=== PATIENT | female | born 1940 | race Caucasian/White ===

== ENCOUNTER 2017-04-28 11:34 | Inpatient (IN) ==
--- NOTE | 2017-04-28 13:50 | Event Note ---
Date of Encounter: 04/28/17 Time of Encounter: 13:48 Patient seen and examined with MAILING SPECIALIST. Left hip fracture after mechanical fall. No loss of conciousness of head trauma. Regarding preop clearance, patient has reasonable functional capicity > 4 mets, cath 2 years ago showed no occlusive CAD. She does have clinical predictors including HTN, CKD whcih make her at moderate risk for postop cardiac complications. However, there is no need for further preop cardiac testing prior to surgery.
--- NOTE | 2017-04-28 14:38 | Orthopedic Consult Note ---
Date of Encounter: 04/28/17 Time of Encounter: 14:36 Assessment and Plan (1) Hip fracture, left Current Visit: No Status: Acute The diagnosis and treatment plan were discussed the patient. She has a left hip intertrochanteric fracture. To allow for ambulation and to get out of bed. Recommend surgical fixation of fracture. She is in agreement with this and would like to proceed with a cephalomedullary nail left hip. Risks and benefits of procedure were discussed with patient and her family and informed consent was obtained. Plan for surgery today. Qualifiers: Encounter type: initial encounter Fracture type: closed Qualified Code(s) : S72.002A - Fracture of unspecified part of neck of left femur, initial encounter for closed fracture History of Present Illness HPI: Ms. Garcia is a 76 year old female fell onto her left hip today. This was a mechanical fall. No syncope or blacking out prior. She had immediate pain and deformity of the left hip. She was initially presented to [place] [facility] where she was diagnosed with a left hip intertrochanteric fracture. She was then transferred to [place] for definitive management. He states she states she ambulated and is a community ambulator. Past Med Surg Social Fam HX - Past Medical History Medical history: diabetes, hyperlipidemia, hypertension, thyroid disease Psychiatric history: no psych history - Social History Smoking Status: Never smoker Smokeless Tobacco Status: No Alcohol use: none Drug use: none - Family History Mother History Unknown: Yes Living Status: Father History Unknown: Yes Medications and Allergies 3 Allergy/AdvReac Type Severity Reaction Status Date / Time ciprofloxacin [From Cipro] Allergy See Verified 04/28/17 10:20 Comments All Systems Reviewed: A 10-system review of systems was performed and is negative for pertinent findings except as documented above in the HPI. Physical Exam - Constitutional Vitals: Temp Pulse Resp BP Pulse Ox 97.9 F 71 18 185/79 99 04/28/17 14:12 04/28/17 14:12 04/28/17 14:12 04/28/17 14:12 04/28/17 14:12 Exam: Consult Exam: Constitutional -Vitals reviewed -The patient is well developed and well nourished. -Mood is pleasant. -The patient is well groomed. Psychiatric -The patient is fully alert and oriented x 3. Respiratory: -Respiratory effort normal Abdomen: -Soft abdomen -Non tender -Non distended: Left upper extremity: -No deformities. The overlying skin is intact. No obvious signs of acute trauma. -No tenderness to palpation throughout. -No significant pain with passive motion of the shoulder, elbow, wrist, and fingers within the limits of the bed. -Able to make an "OK" sign, cross the index and long fingers, and extend the thumb. -Sensation grossly intact to light touch throughout the median, radial, and ulnar distributions. -Radial pulse is present; Fingers have good capillary refill. Right upper extremity: -No deformities. The overlying skin is intact. No obvious signs of acute trauma. -No tenderness to palpation throughout. -No significant pain with passive motion of the shoulder, elbow, wrist, and fingers within the limits of the bed. -Able to make an "OK" sign, cross the index and long fingers, and extend the thumb. -Sensation grossly intact to light touch throughout the median, radial, and ulnar distributions. -Radial pulse is present; Fingers have good capillary refill. Left lower extremity: LLE is short/ER Pain with log roll/IR -Able to dorsiflex and plantarflex the ankle and toes. -Sensation is grossly intact to light touch throughout the sural, saphenous, superficial peroneal, and deep peroneal distributions. -Toes have good capillary refill. Right lower extremity: -No deformities. The overlying skin is intact. No obvious signs of acute trauma. -No tenderness to palpation throughout. -No pain with passive motion of the hip, knee, ankle, and toes within the limits of the bed. -No pain with axial loading of the thigh. -Able to dorsiflex and plantarflex the ankle and toes. -Sensation is grossly intact to light touch throughout the sural, saphenous, superficial peroneal, and deep peroneal distributions. -Toes have good capillary refill. Results - Labs Labs: All other labs normal. - Diagnostic results Hip x-ray: report reviewed, image reviewed (Left hip intertrochanteric fracture) Consult Discharge Plan - Plan Referrals: Leda Charlton MD [Primary Care Provider] -
[2017-04-28] MEDS ORDERED: Naloxone 0.4 MG/ML INJ IVP PRN (14:43)
[2017-04-28] MEDS ORDERED: *HR* HYDROcodone/Acet 5/325 mg TABLET PO PRN (14:43)
[2017-04-28] MEDS ORDERED: Acetaminophen 325 MG TABLET PO PRN (14:43)
[2017-04-28] MEDS ORDERED: Ondansetron 4 MG/2 ML VIAL IVP PRN (14:43)
--- NOTE | 2017-04-28 15:00 | Internal Med History&Physical ---
Date of Encounter: 04/28/17 Time of Encounter: 14:30 Assessment and Plan (1) Hip fracture, left Current visit: Yes Status: Acute Acute closed fx of left hip sustained this morning when pt. fell retrieving eggs outside. Denies hitting head or syncope. Denies hx of falls. Pt. currently pain-free on exam and resting comfortably. Discussed orthopedic consult with Dr. Beavers today who plans to do surgery today and I appreciate the consult. EKG today shows sinus rhythm with first-degree AV block, intraventricular conduction delay, left ventricular hypertrophy and ST-T change. Echocardiogram ordered stat pre-op. Pt. has risk factors of DM, HTN, and HLD. NPO now. Bilateral SCDs on LEs for DVT prophylaxis. Stair-step pain medications for pain mgmt. SW/PT/OT consults ordered to assess for rehabilitation needs post-surgery and post-discharge. Falls/safety precautions. Bed rest. Pt. discussed w/Dr. Moffett who is in agreement w/plan of care. Pt. is high risk for further morbidity based on current fx, sx, and risk factors. Inpatient. Qualifiers: Encounter type: initial encounter Fracture type: closed Qualified Code(s) : S72.002A - Fracture of unspecified part of neck of left femur, initial encounter for closed fracture (2) Leukocytosis Current visit: Yes Status: Acute Acute leukocytosis. Reactive versus infectious-related. Pt. states she was sick for 7 days at [facility] but self-treated. Denies recent illness or current sx. U/A w/micro, culture, and reflex ordered. Blood cultures x 2 ordered. Monitor pt. and f/u labs. Will administer abx if warranted by culture results. Qualifiers: Leukocytosis type: unspecified Qualified Code(s): D72.829 - Elevated white blood cell count, unspecified (3) Diabetes Current visit: Yes Status: Chronic Hx of chronic diabetes controlled by oral antihyperglycemic medications. Hold PO meds and administer low-dose correction insulin sliding scale with hypoglycemic protocol. BG checks before meals and at bedtime. A1c in a.m. labs. Qualifiers: Diabetes mellitus type: type 2 Diabetes mellitus complication status: with unspecified complications Diabetes mellitus senior living insulin use: without senior living use Qualified Code(s): E11.8 - Type 2 diabetes mellitus with unspecified complications (4) HLD (hyperlipidemia) Current visit: Yes Status: Chronic Hx of chronic HLD. Lipid panel in a.m. labs. Continue pts. Lipitor. Qualifiers: Hyperlipidemia type: pure hypercholesterolemia Qualified Code(s): E78.00 - Pure hypercholesterolemia, unspecified; E78.0 - Pure hypercholesterolemia (5) HTN (hypertension) Current visit: Yes Status: Chronic Hx of chronic HTN. Monitor pt. and VS. Continue pts. Lopressor and lisinopril. Qualifiers: Hypertension type: essential hypertension Qualified Code(s): I10 - Essential (primary) hypertension (6) Thyroid disease Current visit: Yes Status: Chronic Hx of chronic thyroid disease. TSH and Free T4 orderd. Continue pts. Synthroid. (7) CKD (chronic kidney disease) stage 4, GFR 15-29 ml/min Current visit: Yes Status: Chronic Hx of CKD. Currently stage 4 w/GFR of 29 and creatinine of 1.71 on admission. Will use IV fluids judiciously if warranted and avoid nephrotoxins. Monitor I&O and daily weight. (8) DVT prophylaxis Current visit: Yes Status: Acute Bilateral SCDs on pts. LEs d/t planned surgery today. Will continue post- surgery d/t risk of bleeding. Internal Medicine - H&P: HPI Chief complaint: Fall Admitted From: Intrahospital Transfer Plans for Post Hospital Care: Home History of present illness: Ms. Garcia is a 76 year old female with medical hx of diabetes controlled with oral and Amyx, HLD, HTN, thyroid disease presents to ED via [place] [facility] with chief complaint of pain in her left hip due to fall sustained this morning. Patient reports she was gathering eggs and slipped on ice when she injured her left hip. Denies blacking out or striking head. Patient denies recent illness states she was sick for approximately 7 days around [facility] with flulike symptoms. Denies recent illness, fever, chills, nausea, vomiting, changes in vision, chest pain, shortness of breath, cough, unusual bleeding, numbness, tingling, dizziness, lightheadedness, weakness, fatigue, pre-syncope, or syncope. Past Med Surg Social Fam HX - Past Medical History Source: patient, old records reviewed, obtained from family Medical history: diabetes, hyperlipidemia, hypertension, thyroid disease Psychiatric history: no psych history - Past Surgical History Surgical History: cholecystectomy, hysterectomy (Total), other (Tubal ligation) - Social History Smoking Status: Never smoker Smokeless Tobacco Status: No Alcohol use: none Drug use: none Current living situation: Home, With Family Activity Level: Independent ambulation Recent Out of Country Travel Within the Last 8 Weeks: No Exposure or Possible Exposure to Illness During Travel: No - Family History Mother History Unknown: Yes Race: Family Member Ethnicity: Non- Living Status: Age at : 78 Cause of : Cancer (Type unknown) Hx Family Cancer: Yes Father History Unknown: Yes Race: Family Member Ethnicity: Non- Living Status: Age at : 74 Cause of : Chronic Lung Disease Hx Family Respiratory Disorders: Yes (Lung disease) Brother Race: Family Member Ethnicity: Non- Living Status: Age at : 83 Cause of : Prostate cancer Hx Family Cancer: Yes (Prostate) Sister Race: Family Member Ethnicity: Non- Living Status: Age at : 80 Cause of : Heart disease Hx Family Cardiac Disorders: Yes (HD) Internal Medicine - H&P: Meds Atorvastatin [Lipitor] 40 mg PO DAILY 04/28/17 [History] Levothyroxine Sodium 88 mcg PO DAILY 04/28/17 [History] Lisinopril [Zestril] 40 mg PO DAILY 04/28/17 [History] Metoprolol [Lopressor] 50 mg PO BID 04/28/17 [History] SitaGLIPtin [Januvia] 100 mg PO DAILY 04/28/17 [History] 3 Allergy/AdvReac Type Severity Reaction Status Date / Time ciprofloxacin [From Cipro] Allergy See Verified 04/28/17 10:20 Comments All Systems PM: A 10-system review of systems was performed and is negative for pertinent findings except as documented above in the HPI. - Constitutional Constitutional: as per HPI, falls, no chills, no fever(s), no night sweats - EENT Eyes: no change in vision, no discharge, no pain, no photophobia Ears: no ear discharge, no ear pain, no tinnitus Nose, mouth and throat: no dysphagia, no nasal discharge, no neck pain, no sore throat - Breasts Breasts: as per HPI - Cardiovascular Cardiovascular ROS IM: no chest pain, no diaphoresis, no dyspnea, no lightheadedness, no palpitations, no syncope - Respiratory Respiratory: no cough, no dyspnea, no wheezing, no excessive phlegm production - Gastrointestinal Gastrointestinal: no abdominal pain, no diarrhea, no hematemesis, no hematochezia, no melena, no nausea, no vomiting - Genitourinary Genitourinary: no change in urinary stream, no dysuria, no flank pain, no hematuria Menstruation: as per HPI, post hysterectomy - Musculoskeletal Musculoskeletal ROS IM: no numbness, no tingling - Integumentary Integumentary IM: no rash, no unusual bruising - Neurological Neurological ROS: no confusion, no convulsions, no focal weakness, no numbness, no tingling, no tremor(s) - Psychiatric Psychiatric: as per HPI - Endocrine Endocrine IM: as per HPI - Hematologic/Lymphatic Hematologic/Lymphatic: no easy bruising - Allergic/Immunologic Allergic/Immunologic: as per HPI - Constitutional Vitals: Temp Pulse Resp BP Pulse Ox 98.5 F 69 16 165/72 93 04/28/17 14:51 04/28/17 14:51 04/28/17 14:51 04/28/17 14:51 04/28/17 14:51 General appearance: Present: cooperative, A&O X 3, pleasant, no acute distress, answers questions appropriately - Head Head exam: Present: atraumatic, normocephalic - Eye Eye exam: Present: PERRL, conjuntiva pink, sclera anicteric Pupils: Present: PERRL - ENT ENT exam: Present: normal exam - Neck Neck exam general surgery: Present: normal inspection, supple, trachea midline. Absent: lymphadenopathy - Respiratory Respiratory exam: Present: CTAB. Absent: accessory muscle use, rales, rhonchi, wheezes - Cardiovascular Cardiovascular exam: Present: RRR, +S1, +S2. Absent: diastolic murmur, gallop, rubs, systolic murmur - GI/Abdominal GI/Abdominal exam: Present: normal bowel sounds, soft, no peritoneal signs. Absent: distended, tenderness - Rectal Rectal exam: Present: deferred - Additional comments: exam deferred. - Extremities Exam Extremities exam: Present: warm, radial pulses palpable and symmetrical. Absent : calf tenderness, cyanotic, pedal edema - Back Exam Back exam: Present: normal inspection - Neurological Exam Neurological exam: Present: alert, CN II-XII intact, oriented X3, no focal deficits. Absent: pronater drift, facial droop, speech deficit - Psychiatric Psychiatric exam: Present: normal affect, normal mood - Skin Skin exam: Present: dry, intact Internal Med - H&P Results - EKG Data EKG shows normal: sinus rhythm - EKG Data Prior EKG available for review: no EKG comments: 04/28/17 15:05 EKG dated 04/28/17 shows sinus rhythm with first-degree AV block, intraventricular conduction delay, and left ventricular hypertrophy and ST-T change. - Diagnostic Studies Chest x-ray Additional comments: EXAMINATION: SINGLE VIEW OF THE CHEST 04/28/2017 10:55 am COMPARISON: 09/22/2014 HISTORY: ORDERING SYSTEM PROVIDED HISTORY: preop FINDINGS: Heart size and pulmonary vessels within normal limits. Lungs clear. Costophrenic angles sharp XR/XR chest 1V portable IMPRESSION: No active cardiopulmonary disease D/ / Theodore Roth MD / Theodore Roth MD Interpreting Provider: Theodore Roth MD Other Images Additional comments: EXAMINATION: 2 VIEWS OF THE LEFT HIP 04/28/2017 10:37 am COMPARISON: None HISTORY: ORDERING SYSTEM PROVIDED HISTORY: hip pain after a fall Acute traumatic left hip pain FINDINGS: There is mildly angulated, intertrochanteric fracture of the left hip. Joint alignment is maintained. Mild degenerative changes are present involving the hips bilaterally. The SI joints and the pubic symphysis are normal in alignment. Bone mineralization is decreased. XR/XR hip complete LT IMPRESSION: Mildly angulated intertrochanteric fracture of the left hip, acute. D/ / 04/28/2017 10:46:53 Darwin Awad MD / Nani Cottrell Interpreting Provider: Darwin Awad MD
[2017-04-28] MEDS ORDERED: *HR* Dextrose 50 % in Water (Syg) 50 ML SYRINGE IVP PRN (15:13)
[2017-04-28] MEDS ORDERED: Dextrose Gel 15 GM/37.5 ML TUBE PO PRN ×2 (15:13)
[2017-04-28] MEDS ORDERED: D5% in Water 1,000 ML IVC PRN (15:13)
[2017-04-28 16:22] LABS: Bilirubin,Urine Negative (Negative); Blood,Urine Negative (Negative); Clarity,Urine Clear (Clear); Color,Urine Yellow (Yellow); Glucose,Urine (UA) Normal (Normal); Ketones,Urine Negative (Negative); Leukocyte Esterase,Urine Negative (Negative); Nitrite,Urine Negative (Negative); Protein,Urine Negative (Neg-Trace); Specific Gravity,Urine 1.017 (1.010-1.025); Urobilinogen,Urine Normal (Normal)
--- NOTE | 2017-04-28 16:28 | Anesthesia Evaluation PreOp ---
Date of Encounter: 04/28/17 Time of Encounter: 16:26 - Past History Cardiac History: HTN, Hyperlipidemia Other Medical History: Renal (CRD Stage IV), Diabetes Type II, Thyroid ( Hypothyroid) Alcohol Use: none Drug use: none Medications and Allergies Atorvastatin [Lipitor] 40 mg PO DAILY 04/28/17 [History] Levothyroxine Sodium 88 mcg PO DAILY 04/28/17 [History] Lisinopril [Zestril] 40 mg PO DAILY 04/28/17 [History] Metoprolol [Lopressor] 50 mg PO BID 04/28/17 [History] SitaGLIPtin [Januvia] 100 mg PO DAILY 04/28/17 [History] 3 Allergy/AdvReac Type Severity Reaction Status Date / Time ciprofloxacin [From Cipro] Allergy See Verified 04/28/17 10:20 Comments
[2017-04-28] MEDS: Insulin LISPRO 300 UNITS/3 ML VIAL SQ SCH (16:39)
[2017-04-28] MEDS ORDERED: Insulin LISPRO 300 UNITS/3 ML VIAL SQ SCH (21:00)
[2017-04-29] MEDS: *HR* HYDROmorphone (PF) 1 MG/ML SYRINGE IVP PRN ×2 (05:12→14:32)
[2017-04-29 06:06] LABS: Basophils % 0.2 %; Eosinophils # 0.1 K/mcL (0.0-0.6); Eosinophils % 0.7 %; Hematocrit 33.1 % (35.3-44.9); Immature Granulocytes % 0.5 % (0-4); Lymphocytes # 1.1 K/mcL (0.6-4.6); Lymphocytes % 10.2 %; Mean Corpuscular HGB Conc 33.2 g/dL (31.6-35.5); Mean Corpuscular Volume 105.4 fL (83.0-100.0); Mean Platelet Volume 10.6 fL (9.4-12.4); Monocytes % 9.5 %; Neutrophils # 8.5 K/mcL (1.6-8.9); Platelet Count 156 K/mcL (140-400); Red Blood Count 3.14 M/mcL (3.82-4.97); Red Cell Distribution Width 14.6 % (11.5-14.5); Segmented Neutrophils % 78.9 %
[2017-04-29 06:10] LABS: Albumin/Globulin Ratio 1.3 (1.1-2.2); Bilirubin,Total 0.7 mg/dL (0.3-1.0); Calcium 9.2 mg/dL (8.6-10.3); Chol/HDL Ratio 6.8 (0-4.9); Magnesium 2.2 mg/dL (1.6-2.6); Potassium 4.3 mEq/L (3.5-5.1)
[2017-04-29 06:27] LABS: Thyroid Stimulating Hormone 2.033 mcIU/mL (0.340-5.600)
[2017-04-29] MEDS: Insulin LISPRO 300 UNITS/3 ML VIAL SQ SCH ×2 (07:05→14:33)
[2017-04-29 08:36] LABS: INR 1.1; Prothrombin Time 12.4 Seconds (9.4-12.1)
[2017-04-29] MEDS ORDERED: Lisinopril 20 MG TABLET PO SCH (09:00)
--- NOTE | 2017-04-29 11:52 | Cardiology Consult Note ---
<Piotr Bustamante - Last Filed: 04/29/17 14:54> Date of Encounter: 04/29/17 Time of Encounter: 11:42 Assessment and Plan (1) Abnormal echocardiogram Current Visit: Yes Status: Acute " LVEF 55-60%. Atypical septal motion consistent with bundle branch block. Wall thickness measurements are not well obtained - probably moderately increased. Mild left ventricular diastolic dysfunction.Normal right ventricular structure and function. Mild aortic regurgitation. Mild mitral regurgitation.No pulmonary hypertension by TR gradient. " Last Echo in 2012 showed: "Mild concentric LVH with normal chamber size and systolic function. LVEF 65%. Septal motion is consistent with BBB. Mild LV diastolic dysfunction. Normal RV. Mild MR. Trivial AR and TR. No pulmonary hypertension, est RVSP 17 mmHg." No change in septal wall motion between echos. Patient is asymptomatic from a cardiac stand point. No reason patient cannot proceed to surgery from a cardiac stand point. Discussion w patient/family: The assessment and plan as outlined above was discussed with the patient and/or family members who expressed understanding and agreement. All questions were answered. Thank you for involving us in the care of your patient. Please call with any questions. History of Present Illness Consult date: 04/29/17 Requesting physician: Edmond Hammonds Consult reason: Dyskinetic septal wall motion on ECHO Chief complaint: L hip Fracture History of present illness: Ms. Garcia is a 76 year old female c Pmhx of DM, HTN, HLD, Thyroid disease who was transferred from [place] ED for L hip fracture s/p mechanical fall. Patient had ECHO cardiogram yesterday as a part of pre-op clearance for hip replacement. Echo showed:" LVEF 55-60%. Atypical septal motion consistent with bundle branch block. Wall thickness measurements are not well obtained - probably moderately increased. Mild left ventricular diastolic dysfunction.Normal right ventricular structure and function. Mild aortic regurgitation. Mild mitral regurgitation.No pulmonary hypertension by TR gradient. " Last Echo in 2012 showed: "Mild concentric LVH with normal chamber size and systolic function. LVEF 65%. Septal motion is consistent with BBB. Mild LV diastolic dysfunction. Normal RV. Mild MR. Trivial AR and TR. No pulmonary hypertension, est RVSP 17 mmHg." No change in septal wall motion between echos. Patient denies chest pain, palpitaitons, syncope, pre-syncope. Past Med Surg Social Fam HX - Past Medical History Medical history: diabetes, hyperlipidemia, hypertension, thyroid disease Psychiatric history: no psych history - Past Surgical History Surgical History: cholecystectomy, hysterectomy (Total), other (Tubal ligation) - Social History Smoking Status: Never smoker Smokeless Tobacco Status: No Alcohol use: none Drug use: none - Family History Mother History Unknown: Yes Race: Family Member Ethnicity: Non- Living Status: Age at : 78 Cause of : Cancer (Type unknown) Hx Family Cancer: Yes Father History Unknown: Yes Race: Family Member Ethnicity: Non- Living Status: Age at : 74 Cause of : Chronic Lung Disease Hx Family Respiratory Disorders: Yes (Lung disease) Brother Race: Family Member Ethnicity: Non- Living Status: Age at : 83 Cause of : Prostate cancer Hx Family Cancer: Yes (Prostate) Sister Race: Family Member Ethnicity: Non- Living Status: Age at : 80 Cause of : Heart disease Hx Family Cardiac Disorders: Yes (HD) Medications and Allergies Atorvastatin [Lipitor] 40 mg PO DAILY 04/28/17 [History] Levothyroxine Sodium 88 mcg PO DAILY 04/28/17 [History] Lisinopril [Zestril] 40 mg PO DAILY 04/28/17 [History] Metoprolol [Lopressor] 50 mg PO BID 04/28/17 [History] SitaGLIPtin [Januvia] 100 mg PO DAILY 04/28/17 [History] 3 Allergy/AdvReac Type Severity Reaction Status Date / Time ciprofloxacin [From Cipro] Allergy See Verified 04/28/17 10:20 Comments All Systems Review: A 10-system review of systems was performed and is negative for pertinent findings except as documented above in the HPI. Physical Examination Vital Signs, Last 4 Hours Temp Pulse Resp BP Pulse Ox 04/29/17 10:00 98.6 F 78 16 134/76 96 General: Conversant, No Apparent Distress HEENT: Atraumatic, Normocephaly, Mucus Membranes Moist Neck: No JVD Cardiac: Reg Rate and Rhythm, Normal S1 and S2, No Murmur Lungs: Normal Breath Sounds, No Wheeze, Rales, Rhonchi Neuro: Alert and responsive, No focal deficits noted Abdomen: Non-Tender Skin: No rashes noted on visualized skin Musculoskeletal: No Chest Wall Tenderness Extremities: No Clubbing, No Cyanosis, No Edema, Normal Pulses Results 04/29/17 05:40 04/29/17 05:40 Lab Results 04/29/17 04/29/17 04/29/17 05:40 05:40 05:40 WBC 10.7 Hgb 11.0 L Hct 33.1 L Plt Count 156 INR Sodium 135 L Potassium 4.3 Chloride 108 H Carbon Dioxide 24 BUN 32 H Creatinine 1.70 H Glucose 142 H Calcium 9.2 Magnesium 2.2 Total Bilirubin 0.7 AST 17 ALT 10 Alkaline Phosphatase 111 H TSH 2.033 04/29/17 08:07 WBC Hgb Hct Plt Count INR 1.1 Sodium Potassium Chloride Carbon Dioxide BUN Creatinine Glucose Calcium Magnesium Total Bilirubin AST ALT Alkaline Phosphatase TSH Consult Discharge Plan - Plan Referrals: Leda Charlton MD [Primary Care Provider] - <Shon Jhaveri - Last Filed: 04/29/17 20:42> Date of Encounter: 04/29/17 - Attending Attestation I examined this patient and my medical decision-making was reviewed with the Resident Physician. I agree with the documented findings, disposition and treatment plan as described except to the extent set forth below. PT presented to ER with complaint of sudden onset severe 9/10 left hip pain, following a mechanical fall. Pt has been unable to stand on left leg, tearful, reports severe pain with any movement of left leg. Pt has received pain meds, not a reliable historian, history confirmed with pts daughter at bedside. PT and daughter deny recent symptoms of chest pain, pressure, shortness of breath, or palpitations. IMP 1. Abnormal Echocardiogram: Pt underwent echocardiography to eval LV function with multiple cardiovascular risk factors, found to have abnormal septal motion consistent with BBB, which is unchanged from previous echo in 2013, normal LV function with EF 65%. 2. Left hip fracture, pt is at low cardiovascular risk for planned procedure, discussed with pts daughter at bedside. 3. Hypertension controlled on current medications when not in severe pain. Assessment and Plan Discussion w patient/family: The assessment and plan as outlined above was discussed with the patient and/or family members who expressed understanding and agreement. All questions were answered. Thank you for involving us in the care of your patient. Please call with any questions. History of Present Illness History of present illness: Ms. Garcia is a 76 year old female All Systems Review: A 10-system review of systems was performed and is negative for pertinent findings except as documented above in the HPI. Physical Examination Vital Signs, Last 4 Hours Temp Pulse Resp BP Pulse Ox 04/29/17 20:05 97.8 F 87 16 146/71 97 04/29/17 19:25 97.9 F 85 16 163/74 94 04/29/17 18:51 97.6 F 86 15 145/78 98 04/29/17 18:29 98.7 F 86 16 133/78 93 04/29/17 18:19 83 16 150/94 94 04/29/17 18:09 89 18 139/68 94 04/29/17 17:59 97.9 F 85 16 142/54 98 Results 04/29/17 05:40 04/29/17 05:40 Lab Results 04/29/17 04/29/17 04/29/17 05:40 05:40 05:40 WBC 10.7 Hgb 11.0 L Hct 33.1 L Plt Count 156 INR Sodium 135 L Potassium 4.3 Chloride 108 H Carbon Dioxide 24 BUN 32 H Creatinine 1.70 H Glucose 142 H Calcium 9.2 Magnesium 2.2 Total Bilirubin 0.7 AST 17 ALT 10 Alkaline Phosphatase 111 H TSH 2.033 04/29/17 08:07 WBC Hgb Hct Plt Count INR 1.1 Sodium Potassium Chloride Carbon Dioxide BUN Creatinine Glucose Calcium Magnesium Total Bilirubin AST ALT Alkaline Phosphatase TSH
[2017-04-29] MEDS ORDERED: *HR* FentaNYL (PF) 100 MCG/2 ML VIAL ONE ×2 (15:07→15:38)
[2017-04-29] MEDS ORDERED: *HR* Propofol 200 MG/20 ML VIAL IVP ONE ×2 (15:07→15:36)
[2017-04-29] MEDS ORDERED: Lidocaine -MPF 2% 2 ML VIAL ONE ×2 (15:13→15:36)
[2017-04-29] MEDS ORDERED: Lidocaine -MPF 4% 5 ML AMPUL ONE (15:13)
--- NOTE | 2017-04-29 15:35 | Anesthesia Evaluation PreOp ---
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 Other Medical History: Renal (CKD/GFR = 29), Diabetes Type II (maintained on Januvia), Thyroid (maintained on Levothyroxine) Anesthesia History: No Prior Anesthetic Complications, Past Anesthesia (Nargis, Hyster, Tubal Ligation) : No Alcohol Use: none Drug use: none Medications and Allergies Atorvastatin [Lipitor] 40 mg PO DAILY 04/28/17 [History] Levothyroxine Sodium 88 mcg PO DAILY 04/28/17 [History] Lisinopril [Zestril] 40 mg PO DAILY 04/28/17 [History] Metoprolol [Lopressor] 50 mg PO BID 04/28/17 [History] SitaGLIPtin [Januvia] 100 mg PO DAILY 04/28/17 [History] 3 Allergy/AdvReac Type Severity Reaction Status Date / Time ciprofloxacin [From Cipro] Allergy See Verified 04/28/17 10:20 Comments - Meds/Allergy Pre-op Review Medications Reviewed: Yes Allergies Reviewed: Yes Beta Blockers on Current Med List: Yes (Metoprolol) If Beta Blockers taken, Date/Time (Last Dose taken): 04/29/2017 @ 0712 Anesthesia Results - Labs 04/29/17 05:40 04/29/17 05:40 Laboratory Results Impressions Echocardiogram 04/28/17 14:36 Impressions: LVEF 55-60%. Atypical septal motion consistent with bundle branch block. Wall thickness measurements are not well obtained - probably moderately increased. Mild left ventricular diastolic dysfunction. Normal right ventricular structure and function. Mild aortic regurgitation. Mild mitral regurgitation. No pulmonary hypertension by TR gradient. Left Ventricular Wall Motion: Rest Echo Findings The apical septal, mid inferior septal, basal inferior septal, mid anterior septal and basal anterior septal collier were dyskinetic. The mid inferior lateral and basal inferior lateral collier were not visualized. All other wall segments showed normal motion. Findings: Study Quality * Technically somewhat challenging exam - patient supine. ECG Findings * Sinus rhythm with BBB. Left Ventricle * LVEF 55-60%. * Atypical septal motion consistent with bundle branch block. * Normal LV size. * Wall thickness measurements are not well obtained - probably moderately increased. * Mild left ventricular diastolic dysfunction. Right Ventricle * Normal right ventricular structure and function. Left Atrium * Left atrium is not well visualized. Right Atrium * Right atrium is not well visualized. Aortic Valve * Aortic valve not well visualized. * Mild focal calcification and thickening. * Mild aortic regurgitation. * No aortic stenosis. Mitral Valve * Mild mitral annular calcification * Normal mitral valve structure. * No mitral stenosis. * Mild mitral regurgitation. Tricuspid Valve * Tricuspid valve not well visualized. * Trace tricuspid regurgitation. Pulmonic Valve * Pulmonic valve is not well visualized. * No pulmonic stenosis. * No pulmonic regurgitation. Aorta * Not well visualized. Pulmonary Artery * Pulmonary artery not well visualized. Interatrial Septum * No evidence of PFO by color Doppler. Pericardium * There is no pericardial effusion present. IVC * The IVC is not well evaluated. - Imaging EKG: image reviewed (74bpm SR, 1st degree AV Block, IVCD, LVH) Anesthesia Exam Vital Signs Temp Pulse Resp BP Pulse Ox 04/29/17 10:00 98.6 F 78 16 134/76 96 04/29/17 06:44 98.4 F 74 16 126/78 98 04/29/17 05:01 98.6 F 69 14 128/72 96 04/29/17 00:31 98.6 F 69 16 117/65 94 04/28/17 19:06 98.2 F 71 16 150/69 98 Intake and Output 04/28/17 04/29/17 04/29/17 23:59 07:59 15:59 Intake Total 0 / 0 0 / 0 Output Total 150 / 150 25 / 25 Balance -150 / -150 -25 / -25 0 / 0 Intake: Oral 0 / 0 0 / 0 Output: Catheter 150 / 150 25 / 25 Other: # Bowel Movements 0 Weight 63.5 kg Blood Glucose* 143 129 122 Patient Weight 04/29/17 23:59 Weight 63.5 kg Height: 5'2" Weight: 139# BMI = 25.6 NPO (# of Hours): MNoc - HEENT Pupil (Motor): Pupils equal, EOMI Mallampati: II Teeth: Missing (all but 6 lower teeth), Edentulous (upper) Oral Opening: Greater than 3 - DRAY TRUCK DRIVER LOC: Oriented DRAY TRUCK DRIVER Motor: Normal RUE, Normal LUE, Normal RLE, Normal Face, Deficit LLE DRAY TRUCK DRIVER Sensory: Normal: RUE, LUE, RLE, Face, Deficit: LLE - Cardiac Rhythm: Regular Murmur: None - Pulmonary Breath Sounds: bilateral Clear Respiratory Effort: Symmetrical Anesthesia Assess/Plan ASA Score: 3 (HTN, Chol, DM, HYpothyroidism, CKD) Modified Sofiya Scale for Level of Consciousness: Cooperative, oriented, and tranquil Anesthetic Plan: General Autologous Blood: Yes Monitoring Plan: Standard Monitors Recovery Plan: PACU Anes Supervising Prov Stmt: PT seen/evaluated, R&B Discussed, questions answered and consent obtained. Lavinia Valenzuela MD
[2017-04-29] MEDS ORDERED: Ondansetron 4 MG/2 ML VIAL ONE (15:36)
[2017-04-29] MEDS ORDERED: Dexamethasone 4 MG/ML VIAL ONE (15:36)
[2017-04-29] MEDS ORDERED: EPHEDrine 50 MG/ML VIAL ONE (16:28)
[2017-04-29] MEDS ORDERED: *HR* Morphine 2 MG/ML SYRINGE IVP PRN ×2 (16:51→18:43)
[2017-04-29] MEDS ORDERED: Ondansetron 4 MG/2 ML VIAL IVP ONE ×2 (16:51→18:43)
[2017-04-29] MEDS ORDERED: Ringers Solution, Lactated 1,000 ML IVC SCH ×2 (17:00→18:43)
--- NOTE | 2017-04-29 17:51 | Orthopedic Operative Note ---
Date of procedure: 04/29/17 Pre-op diagnosis: Left hip intertrochanteric fracture Post-op diagnosis: same Procedure: 1. Left hip cephalomedullary nail INDICATIONS: This is a 76-year-old female who had a fall and sustained a left hip intertrochanteric fracture. After discussing the procedure at length, the patient elected for operative management with a cephalomedullary nail of the left hip. The risks and benefits of the procedure were fully explained. Those risks include but are not limited to, infection, neurovascular injury, continued pain, arthritis, stiffness, further injury, need for further surgery, DVT, PE, loss of limb, and loss of life. The patient understood all of these risks and wished to proceed. Informed consent was obtained. No guarantees were stated or implied. OPERATIVE REPORT: The patient was identified in the holding area. The left lower extremity was marked, the patient was taken to the operating room and general anesthetic was administered on the hospital bed. The patients head, neck and airway were protected by anesthesia through the case. The patient was then transferred to the fracture table and placed in the supine position with a well padded perineal post. All bony prominences were well padded. The left leg was attached to the traction device on the fracture bed. The right leg was then placed in a well leg roy and positioned out of the way of fluoroscopy. We then utilized the fracture table to reduce the fracture and obtained fluoroscopic images in AP and lateral planes confirming alignment. The left lower extremity was then prepped and draped in the normal manner. Preoperative antibiotics were given prior to incision. A surgical time out protocol was then performed. We then made an incision just proximal to the greater trochanter. We dissected down and through the IT band. We were then able to palpate the greater trochanter and we placed a guidepin in the appropriate starting position on the greater trochanter. We advanced the guidepin and the proximal femur slightly and then confirmed the position in both AP and lateral planes. After confirming acceptable pin placement, we advanced the pin to the level of the lesser trochanter. We then utilized an entry reamer over the pin to open up the canal. We then placed a 10 mm size short nail. We advanced the nail to the appropriate depth taking care to avoid any further injury. When the nail was at the appropriate depth we used the outrigger to place a compression blade into the femoral head. We confirmed central location of the blade on both AP and lateral x-rays. There was compression across the fracture site that was visible on fluoroscopy. After confirming acceptable alignment of the fracture, we then used the outrigger to place a distal locking screw from lateral to medial. At this point we obtained final fluoroscopic images of the left hip and femur in both AP and lateral planes. We then thoroughly irrigated the wounds and closed the IT band with 0 Vicryl. Subcutaneous tissues were closed with 2-0 vicryl. Skin was closed with zipline. We then placed sterile dressings the patient was awoken by anesthesia and transferred to PACU in stable condition. Patient tolerated the procedure well. Postop plan: The patient will be transferred back to the floor and will be weight-bearing as tolerated postop. Implants: synthes tfn size 10 short nail, 95 mm blade Complications: none Anesthesia: BETHA Surgeon: Dandre Beavers Was there an engineer second assistant present: No Estimated blood loss (cc): 100 Condition: stable Disposition: PACU
--- NOTE | 2017-04-29 17:58 | Physician Discharge Referral ---
Home Health/Hosp Referral Info Transfer to: Home Health - Diagnosis (1) Hip fracture, left Status: Inactive - Respiratory Orders Smoking Cessation: Smoking cessation has been advised. For more information, call the [place] Tobacco Quit Line at 3-050-VGFQ-NOW. - Diet/Nutrition Diet/Nutrition Orders: Regular - Activity Activity Orders: Ambulate, Chair, Walker - Services Needed Following services are medically necessary services: Nursing, Home Health Aide, Physical Therapy, Occupational Therapy Other Treatments: CORRECTION DISCHARGE INSTRUCTIONS Dr. Beavers PROCEDURE PERFORMED Reduction and fixation of left hip. Incision care -Keep clear dressing in place. If dressing becomes saturated, may perform daily dressing changes to the left hip with dry gauze and either paper tape or medipore tape. -Avoid soaking wound in water (no hot tubs, bathtubs, swimming pools). -May shower after 2 weeks from surgery date. Carefully wash incision with soap and water. Gently pat it dry. Don't rub the incision, or apply creams or lotions. Sit on a shower stool when showering to keep from falling. Weight bearing status -Weightbearing as tolerated to the bilateral lower extremities. Medications -Pain medication per the discharging medical doctor -Enteric coated aspirin 325 mg by mouth twice per day for 28 days from the date of the surgery. [-Resume 50,000 units of vitamin D2 weekly and 1200 mg of calcium supplementation per day.] Other -Knee high DANIEL hose 23 hours per day -Consult physical and occupational therapy for mobilization. -Up to chair with assistance at least twice per day. -Follow up with your primary care physician to discuss testing for bone mineral density. Follow-Up -Follow-up with Dr. Beavers in office in 2 weeks from the surgery date for a post-operative evaluation. -Call the office at [phone] to schedule or confirm your appointment. -Follow up with your primary care physician to discuss testing for bone mineral density. - Transfer Medications Home Medications: Atorvastatin [Lipitor] 40 mg PO DAILY 04/28/17 [History] Levothyroxine Sodium 88 mcg PO DAILY 04/28/17 [History] Lisinopril [Zestril] 40 mg PO DAILY 04/28/17 [History] Metoprolol [Lopressor] 50 mg PO BID 04/28/17 [History] SitaGLIPtin [Januvia] 100 mg PO DAILY 04/28/17 [History] Allergies/Adverse Reactions: 3 Allergy/AdvReac Type Severity Reaction Status Date / Time ciprofloxacin [From Cipro] Allergy See Verified 04/28/17 10:20 Comments Certification: Further, I certify that my clinical findings support that this patient is homebound (i.e. absences from home require considerable and taxing effort and are for medical reasons or cheondoism services or infrequently or short duration when for other reasons) because: Homebound Reason: Patient requires assistance of a person or device to safely leave home Attestation: My signature below is to certify that this patient is under my care and that I, or nurse practitioner, or a physician's orthotics prosthetics assistant working with me, has a face-to -face encounter with this patient.
--- NOTE | 2017-04-29 17:59 | Internal Med Progress Note ---
Date of Encounter: 04/29/17 Time of Encounter: 11:00 - Assessment and plan (1) Hip fracture, left Current Visit: Yes Status: Acute Assessment and plan: -Patient was taken by orthopedics for surgical procedure Qualifiers: Encounter type: initial encounter Qualified Code(s): S72.002A - Fracture of unspecified part of neck of left femur, initial encounter for closed fracture (2) HLD (hyperlipidemia) Current Visit: Yes Status: Chronic Assessment and plan: -Continue statin Qualifiers: Hyperlipidemia type: pure hypercholesterolemia Qualified Code(s): E78.00 - Pure hypercholesterolemia, unspecified; E78.0 - Pure hypercholesterolemia (3) HTN (hypertension) Current Visit: Yes Status: Chronic Assessment and plan: -Continue home med Qualifiers: Hypertension type: essential hypertension Qualified Code(s): I10 - Essential (primary) hypertension (4) Thyroid disease Current Visit: Yes Status: Chronic Assessment and plan: -Continue home meds (5) CKD (chronic kidney disease) stage 4, GFR 15-29 ml/min Current Visit: Yes Status: Chronic Assessment and plan: Stable; continue to monitor - Subjective Interval history: Patient with left hip discomfort this morning and to go for surgery today - Constitutional Vitals: Temp Pulse Resp BP Pulse Ox 98.6 F 78 16 134/76 96 04/29/17 10:00 04/29/17 10:00 04/29/17 10:00 04/29/17 10:00 04/29/17 10:00 General appearance: Present: cooperative, A&O X 3, pleasant, no acute distress, answers questions appropriately - Respiratory Respiratory exam: Present: CTAB. Absent: accessory muscle use, rales, rhonchi, wheezes - Cardiovascular Cardiovascular exam: Present: bradycardia, RRR, +S1, +S2. Absent: diastolic murmur, gallop, rubs, systolic murmur Internal Medicine: Result - Labs CBC & Chem 7: 04/29/17 05:40 04/29/17 05:40 Labs: Short CBC 04/29/17 Range/Units 05:40 WBC 10.7 (4.3-11.1) K/mcL Hgb 11.0 L (11.5-15.4) g/dL Hct 33.1 L (35.3-44.9) % Plt Count 156 (140-400) K/mcL Neutrophils # 8.5 (1.6-8.9) K/mcL BMP 04/29/17 05:40 Sodium 135 L Potassium 4.3 Chloride 108 H Carbon Dioxide 24 BUN 32 H Creatinine 1.70 H Glucose 142 H Calcium 9.2 Liver Function 04/29/17 Range/Units 05:40 Total Bilirubin 0.7 (0.3-1.0) mg/dL AST 17 (13-39) Units/L ALT 10 (7-52) Units/L Alkaline Phosphatase 111 H (34-104) Units/L Albumin 4.0 (3.5-5.7) g/dL - ABG Interpretation ABG results: PT/INR, D-dimer PT 12.4 Seconds (9.4-12.1) H 04/29/17 08:07 - VTE Documentation of Mechanical Device: Intermittent pneumatic compression device Consult Discharge Plan - Plan Referrals: Leda Charlton MD [Primary Care Provider] -
--- NOTE | 2017-04-29 18:34 | Anesthesia Evaluation Post Op ---
Date of Encounter: 04/29/17 Time of Encounter: 18:30 - Vital Signs Vital Signs: Vital Signs - Last 8 Hours Temp Pulse Resp BP Pulse Ox 04/29/17 18:19 83 16 150/94 94 04/29/17 18:09 89 18 139/68 94 04/29/17 17:59 97.9 F 85 16 142/54 98 Intake and Output 04/29/17 04/29/17 04/29/17 07:59 15:59 23:59 Intake Total 0 / 0 0 / 0 Output Total 25 / 25 300 / 300 450 / 450 Balance -25 / -25 -300 / -300 -450 / -450 Intake: Oral 0 / 0 0 / 0 Output: Estimated Blood Loss 100 / 100 Urine Amount (Catheter) 350 / 350 Catheter 25 / 25 300 / 300 Other: # Bowel Movements 0 Weight 63.5 kg Blood Glucose* 129 122 88 Patient Weight 04/29/17 23:59 Weight 63.5 kg - Lungs Lungs: Clear Ascult./Percussion - Airway Airway: Non-obstructed - Cardiovascular Regular Rate, Baseline Rhythm - Mental Status Mental Status: Alert & Oriented, Answers Appropriately - Pain Pain Scale: 0 Pain Scale used: Numeric (1 - 10) - Nausea Vomiting Nausea Vomiting: Not Present - Hydration Hydration: Tolerates oral liquids - Discharge PostOp Status: Transfer Patient to floor
[2017-04-29] MEDS ORDERED: Naloxone 0.4 MG/ML INJ IVP PRN (18:43)
[2017-04-29] MEDS ORDERED: D5% in Water 1,000 ML IVC PRN (18:43)
[2017-04-29] MEDS ORDERED: Dextrose Gel 15 GM/37.5 ML TUBE PO PRN ×2 (18:43)
[2017-04-29] MEDS ORDERED: Ondansetron 4 MG/2 ML VIAL IVP PRN (18:43)
[2017-04-29] MEDS ORDERED: *HR* HYDROcodone/Acet 5/325 mg TABLET PO PRN (18:43)
[2017-04-29] MEDS ORDERED: *HR* Dextrose 50 % in Water (Syg) 50 ML SYRINGE IVP PRN (18:43)
[2017-04-29] MEDS ORDERED: *HR* HYDROmorphone (PF) 1 MG/ML SYRINGE IVP PRN (18:43)
[2017-04-29] MEDS ORDERED: Acetaminophen 325 MG TABLET PO PRN (18:43)
[2017-04-29] MEDS ORDERED: Insulin LISPRO 300 UNITS/3 ML VIAL SQ SCH (21:00)
[2017-04-30] MEDS: CeFAZolin Premix DUPLEX 2,000 MG/50 ML BAG IVPB SCH ×2 (01:29→08:46)
[2017-04-30 07:03] LABS: Basophils % 0.1 %; Hematocrit 32.5 % (35.3-44.9); Hemoglobin 10.8 g/dL (11.5-15.4); Immature Granulocytes % 0.5 % (0-4); Lymphocytes # 0.5 K/mcL (0.6-4.6); Lymphocytes % 4.4 %; Mean Corpuscular HGB Conc 33.2 g/dL (31.6-35.5); Mean Corpuscular Hemoglobin 34.4 pg (28.0-33.3); Mean Corpuscular Volume 103.5 fL (83.0-100.0); Mean Platelet Volume 10.9 fL (9.4-12.4); Monocytes # 0.8 K/mcL (0.0-1.3); Monocytes % 7.9 %; Platelet Count 159 K/mcL (140-400); Red Blood Count 3.14 M/mcL (3.82-4.97); Red Cell Distribution Width 14.6 % (11.5-14.5); Segmented Neutrophils % 87.1 %
[2017-04-30 07:20] LABS: Albumin/Globulin Ratio 1.3 (1.1-2.2); Bilirubin,Total 0.5 mg/dL (0.3-1.0); Calcium 9.2 mg/dL (8.6-10.3); Potassium 4.7 mEq/L (3.5-5.1)
[2017-04-30] MEDS: Insulin LISPRO 300 UNITS/3 ML VIAL SQ SCH ×2 (08:48→12:33)
[2017-04-30] MEDS ORDERED: Lisinopril 20 MG TABLET PO SCH (09:00)
[2017-04-30] MEDS ORDERED: *HR* SitaGLIPtin 25 MG TABLET PO SCH (09:00)
[2017-04-30 12:21] VITALS: BP 110/70
--- NOTE | 2017-04-30 13:36 | Discharge Summary ---
Date of Encounter: 04/30/17 Time of Encounter: 13:34 - Discharge Diagnosis (1) Hip fracture, left Priority: Primary Status: Acute Comments: Left intertrochanteric fracture status post cephalo-medullary nail Qualifiers: Encounter type: initial encounter Qualified Code(s): S72.002A - Fracture of unspecified part of neck of left femur, initial encounter for closed fracture (2) Diabetes Priority: Secondary Status: Chronic Qualifiers: Diabetes mellitus type: type 2 Diabetes mellitus complication status: with unspecified complications Diabetes mellitus fci insulin use: without c python developer use Qualified Code(s): E11.8 - Type 2 diabetes mellitus with unspecified complications (3) HTN (hypertension) Priority: Secondary Status: Chronic Qualifiers: Hypertension type: essential hypertension Qualified Code(s): I10 - Essential (primary) hypertension (4) CKD (chronic kidney disease) stage 4, GFR 15-29 ml/min Priority: Secondary Status: Chronic (5) Hypothyroidism Priority: Secondary Status: Acute Qualifiers: Hypothyroidism type: unspecified Qualified Code(s): E03.9 - Hypothyroidism , unspecified - Discharge Medications Prescriptions: HYDROcodone/Acet 5/325 mg [Orrum 5-325 mg] 1 tab PO Q4HR PRN #25 tablet PRN Reason: Moderate Pain (4-6) Enoxaparin [Lovenox] 30 mg SQ 1800 #14 syringe Home Medications: Atorvastatin [Lipitor] 40 mg PO DAILY 04/28/17 [History] Levothyroxine Sodium 88 mcg PO DAILY 04/28/17 [History] Lisinopril [Zestril] 40 mg PO DAILY 04/28/17 [History] Metoprolol [Lopressor] 50 mg PO BID 04/28/17 [History] SitaGLIPtin [Januvia] 100 mg PO DAILY 04/28/17 [History] Enoxaparin [Lovenox] 30 mg SQ 1800 #14 syringe 04/30/17 [Rx] HYDROcodone/Acet 5/325 mg [Orrum 5-325 mg] 1 tab PO Q4HR PRN #25 tablet [Rx] Allergies/Adverse Reactions: 3 Allergy/AdvReac Type Severity Reaction Status Date / Time ciprofloxacin [From Cipro] Allergy See Verified 04/28/17 10:20 Comments Procedures/tests Complete & Pending: Procedures Performed prior 72 hours Category Date Time Status EKG [ECG 12 lead ECG] [ECG] Routine Y 04/28/17 14:35 Completed EV echocardiogram Stat Y 04/28/17 14:36 Completed Date of admission: 04/28/17 13:41 Primary care physician: Leda Charlton, Consults: 04/28/17 14:20 Consult to Immersion Metal Cleaner [CONS] Routine Reason for SW Consult: Pt need for rehab post-surgery and post-discharge. Pt. lives w/daughter so any home rehab would be welcomed. 04/28/17 14:47 Consult to Occupational Therapy [CONS] Routine Comment: Evaluate, develop and implement POC Reason for Consult: Patient had mechanical fall this morning w/fx of left hip. Please assess patient post-surgery w/recommendations for rehabilitation services. Pt. states she lives w/her daughter and home rehab would be welcomed if appropriate. 04/28/17 14:49 Consult to Physical Therapy [CONS] Routine Comment: Evaluate, develop and implement POC Reason for Consult: Patient had mechanical fall this morning w/fx of left hip. Please assess patient post-surgery w/recommendations for rehabilitation services. Pt. states she lives w/her daughter and home rehab would be welcomed if appropriate. 04/28/17 14:51 Consult to Orthopedic Surgery [CONS] Routine Consulting Provider: [facility] Reason for Consult: Patient had mechanical fall today resulting in left hip fx. [facility] consulted Dr. Beavers who plans on doing surgery today. NPO. Call Completed: Yes 04/29/17 13:56 Consult to Cardiology [CONS] Routine Comment: Consulting Provider: [facility] Reason for Consult: pre op Call Completed: Yes 04/29/17 18:43 Consult to Occupational Therapy [CONS] Routine Comment: Evaluate, develop and implement POC Reason for Consult: post hip surgery Consult to Orthopedic Navigator [CONS] [CONS] Routine Consult to Physical Therapy [CONS] Routine Comment: Evaluate, develop and implement POC Reason for Consult: post hip surgery Consult to Immersion Metal Cleaner [CONS] Routine Reason for SW Consult: post -op hip fracture RT Post Op Consult [CONS] Routine - Patient Status Disposition: Home Health Service Condition: Fair Overall status at discharge: patient is progressing back to baseline - Discharge Instructions Follow Up With: Leda Charlton MD [Primary Care Provider] - Additional Instructions: Follow-up with primary care physician within the next 7 days. Follow-up with orthopedic surgery within the next 2 weeks. Continue hydrocodone as needed for pain. Continue Lovenox for DVT prophylaxis for the next 2 weeks. Surgical wound care per orthopedic surgery recommendations - Diet and Activity Activity: increase activity as tolerated Diet: diabetic diet Hospital course: Ms. Garcia is a 76 year old female with medical hx of diabetes not insulin- dependent, hypothyroidism, HLD, HTN, presented to the ED via [facility] with chief complaint of pain in her left hip due to fall sustained on the morning of admission. Patient reported she was gathering eggs and slipped on ice when she injured her left hip. Denied blacking out or striking head. Patient denied recent illness stated she was sick for approximately 7 days around [facility] with flu-like symptoms. Echocardiogram showed an ejection fraction of 55-60% and atypical septal motion consistent with bundle branch block Underwent a left cephalo-medullary nail/surgical procedure. Was given the option to be transferred to a rehabilitation facility as recommended by PT but the patient and her family rejected that idea and preferred to be discharged home. Risks of falling were discussed - Time Spent with Patient Total time spent providing and/or coordinating discharge services: Greater than 30 minutes (40 min) - Constitutional Vitals: Temp Pulse Resp BP Pulse Ox 98.0 F 74 14 110/70 99 04/30/17 12:00 04/30/17 12:00 04/30/17 12:00 04/30/17 12:00 04/30/17 12:00 General appearance: Present: cooperative, A&O X 3, pleasant, no acute distress, answers questions appropriately - Head Head exam: Present: atraumatic, normocephalic - Eye Eye exam: Present: PERRL, conjuntiva pink, sclera anicteric Pupils: Present: PERRL - Neck Neck exam general surgery: Present: supple, trachea midline. Absent: lymphadenopathy - Respiratory Respiratory exam: Present: CTAB. Absent: accessory muscle use, rales, rhonchi, wheezes - Cardiovascular Cardiovascular exam: Present: RRR, +S1, +S2. Absent: diastolic murmur, gallop, rubs, systolic murmur - GI/Abdominal GI/Abdominal exam: Present: normal bowel sounds, soft, no peritoneal signs. Absent: distended, tenderness - Extremities Exam Extremities exam: Present: warm, radial pulses palpable and symmetrical. Absent : calf tenderness, cyanotic, pedal edema Additional comments: Left hip surgical wound without signs of hematoma or infection - Neurological Exam Neurological exam: Present: CN II-XII intact, oriented X3, no focal deficits. Absent: pronater drift, facial droop, speech deficit - Skin Skin exam: Present: dry, intact - VTE Documentation of Mechanical Device: Intermittent pneumatic compression device
--- NOTE | 2017-04-30 13:47 | Physician Discharge Referral ---
Home Health/Hosp Referral Info Transfer to: Home Health Provider in Charge Post Discharge: PCP - Diagnosis (1) Hip fracture, left Status: Acute (2) Diabetes Status: Chronic (3) HTN (hypertension) Status: Chronic (4) CKD (chronic kidney disease) stage 4, GFR 15-29 ml/min Status: Chronic (5) Hypothyroidism Status: Acute - Respiratory Orders Smoking Cessation: Smoking cessation has been advised. For more information, call the [place] Tobacco Quit Line at 3-316-ZWUA-NOW. - Diet/Nutrition Diet/Nutrition: List: Diabetic diet - Services Needed Following services are medically necessary services: Nursing, Home Health Aide, Physical Therapy, Occupational Therapy Home Care Orders: Follow-up with primary care physician within the next 7 days. Follow-up with orthopedic surgery within the next 2 weeks. Continue hydrocodone as needed for pain. Continue Lovenox for DVT prophylaxis for the next 2 weeks. Surgical wound care per orthopedic surgery recommendations - Transfer Medications Prescriptions: HYDROcodone/Acet 5/325 mg [Venus 5-325 mg] 1 tab PO Q4HR PRN #25 tablet PRN Reason: Moderate Pain (4-6) Enoxaparin [Lovenox] 30 mg SQ 1800 #14 syringe Home Medications: Atorvastatin [Lipitor] 40 mg PO DAILY 04/28/17 [History] Levothyroxine Sodium 88 mcg PO DAILY 04/28/17 [History] Lisinopril [Zestril] 40 mg PO DAILY 04/28/17 [History] Metoprolol [Lopressor] 50 mg PO BID 04/28/17 [History] SitaGLIPtin [Januvia] 100 mg PO DAILY 04/28/17 [History] Enoxaparin [Lovenox] 30 mg SQ 1800 #14 syringe 04/30/17 [Rx] HYDROcodone/Acet 5/325 mg [Venus 5-325 mg] 1 tab PO Q4HR PRN #25 tablet [Rx] Allergies/Adverse Reactions: 3 Allergy/AdvReac Type Severity Reaction Status Date / Time ciprofloxacin [From Cipro] Allergy See Verified 04/28/17 10:20 Comments Certification: Further, I certify that my clinical findings support that this patient is homebound (i.e. absences from home require considerable and taxing effort and are for medical reasons or [facility] or infrequently or short duration when for other reasons) because: Homebound Reason: Post-surgery restriction and or conditions limit ability to leave home Attestation: My signature below is to certify that this patient is under my care and that I, or nurse practitioner, or a physician's broker assistant working with me, has a face-to -face encounter with this patient.
[2017-04-30] MEDS ORDERED: *HR* Enoxaparin 30 MG/0.3 ML SYRINGE SQ SCH (18:00)
--- NOTE | 2017-05-01 07:55 | Electrocardiograph Report ---
[address] [address] Test Date: 2017-04-28 Pat Name: Tanya Garcia Department: [id number] Room: [facility] Gender: F Associate Professor Of History: JJG : 1940 Requested By: Guillaume Carreno Order Number: [id number] Reading MD: Arnulfo Monsivais MD Measurements Intervals [place] Rate: 72 P: 60 NM: 228 QRS: -17 QRSD: 136 T: 14 QT: 405 QTc: 429 Interpretive Statements SINUS RHYTHM WITH FIRST DEGREE AV BLOCK INTRAVENTRICULAR CONDUCTION DELAY Electronically Signed On 05-01-2017 6:45:02 EST by Arnulfo Monsivais MD
[2017-05-01] MEDS ORDERED: *HR* SitaGLIPtin 25 MG TABLET PO SCH (09:00)
== END 2017-04-30 17:13 | disposition home health service (06) | DRG 481 ==
LOC: 3NENU 13:41
PROVIDERS: ADMIT Hospitalist; ATTEND Hospitalist